=== PATIENT | female | born 1945 | race Caucasian/White ===

== ENCOUNTER → 2016-05-09 | Outpatient (CLI) | payer OTHER, MEDICARE ==
[~2016-05-09] MED LIST: ASPI-587 PO; HYDR1TAB8 OP
--- OUTSIDE RECORDS SUMMARY | 2016-05-09 09:51 | XMS REPORT | Continuity of Care Document ---
Author Author [facility] Organization [facility] Address Unknown Phone Unavailable Care Team Providers Care Ice Hockey Coach Name Role Phone AL ARIZA MD PCP Insurance Providers Payer Name Policy Number Subscriber Name Relationship [employer] [id number] Kevin Najera 18 Self / Same As Patient Enter Insurance Name [id number] Kevin Najera 18 Self / Same As Patient Problems Medical Problems Problem Onset Date Status Closed fracture of left distal radius Unknown Active Medications Medication Dose Route Sig Days/Qty Instructions Order Date Discontinued Date Status Aspirin 81 Mg PO DAILY 08/16/14 Active Hydrocodone Bitartrate/Ibuprofen 1-2 Each OP Q4-6HR PRN PAIN 20 Qty FOR PAIN 08/16/14 Active Social History Social History Problem Response Recorded Date/Time Recreational Drug Use No 08/16/2014 10:10am Recent Foreign Travel No 08/16/2014 9:30am Recent Infectious Disease Exposure No 08/16/2014 9:30am Hospitalization with Isolation Denies 08/16/2014 9:30am Hospital Discharge Instructions No hospital discharge instructions. Plan of Care No plan of care. Functional Status No functional status results. Allergies, Adverse Reactions, Alerts Allergen Type Severity Reaction Status Last Updated No Known Drug Allergies Active 08/16/14 Immunizations No immunization records. Vital Signs Acute Vital Signs Vital Response Date/Time Temperature (Fahrenheit) 96.9 degrees F (97.6 - 99.5) Temperature (Calculated Celsius) 36.83075 degrees C (36.4 - 37.5) Pulse Rate (adult) 76 bpm (60 - 90) Respiratory Rate 20 bpm (12 - 24) O2 Sat by Pulse Oximetry 97 % (88 - 100) Blood Pressure 174/112 mm Hg Pain Pain Intensity 5 Height (Feet) 5 feet Height (Inches) 6 inches Height (Calculated Centimeters) 167.908873 cm Weight (Pounds) 160 pounds Weight (Calculated Kilograms) 72.131182 kilograms Calculated BMI 25.82 Results No known relevant diagnostic tests, laboratory data and/or discharge summary. Procedures No known history of procedures. Encounters Encounter Location Date/Time Departed Emergency Room [facility] 08/16/14 9:31am Recent Diagnosis
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
== END ==
LOC: RAD 09:42
PROVIDERS: ATTEND Family Medicine
DX: S12.9XXA Fracture of neck, unspecified, initial encounter (principal); V99.XXXA Unspecified transport accident, initial encounter; Y99.8 Other external cause status
CPT/HCPCS: 71120; 72040; 72072

== ENCOUNTER 2017-05-07 14:47 | Inpatient (IN) | payer MEDICARE, OTHER ==
[2017-05-07] VITALS (14 sets, daily range): BP systolic 96–148; BP diastolic 66–95
[~2017-05-07] VITALS: Ht 162.6 cm; Wt 67.3 kg
[2017-05-07] MEDS ORDERED: LIDOCAINE 1% INJ 50 ML (XYLOCAINE) VIAL ONE (15:00)
[2017-05-07] MEDS ORDERED: fentaNYL INJECTION 100 MCG/2 ML AMP ONE (15:01)
[2017-05-07] MEDS ORDERED: HEParin (CATH LAB) 2,000 ML IV ONE (15:01)
[2017-05-07] MEDS ORDERED: MIDAZOLAM 5 MG/5 ML (VERSED) VIAL ONE (15:01)
[2017-05-07] MEDS ORDERED: NS IV 1000 ML 1,000 ML ONE (15:01)
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
[2017-05-07] MEDS ORDERED: CLOPIDOGREL 300 MG (PLAVIX) TABLET PO ONE ×2 (15:08→15:15)
[2017-05-07] MEDS ORDERED: ASPIRIN 81 MG CHEW (CHILDREN'S ASA) ONE (15:08)
--- NOTE | 2017-05-07 15:13 | Cardiac Procedure Note-CS/ASA ---
Pre-Procedure Note Pre-Op Procedure Note H&P Reviewed The H&P was reviewed, patient examined and no changes noted. Date H&P Reviewed: May 07, 2017 Time H&P Reviewed: 15:13 Conscious Sedation Pre-Proced Time Reviewed: 15:13 ASA Class: 3 Airway Mallampati Classification: ([place] appropriate class) I. II. III, IV Lungs Heart ASA score ASA 1: a normal healthy patient ASA 2: a patient with a mild systemic disease (mid diabetes, controlled hypertension, obesity x ASA 3: a patient with a severe systemic disease that limits activity (angina , COPD, prior Myocardial infarction) ASA 4: a patient with an incapacitating disease that is a constant threat to life (CHF, renal failure) ASA 5: a moribund patient not expected to survive 24 hrs. (ruptured aneurysm) ASA 6: a declared brain patient whose organs are being harvested. For emergent operations, add the letter E after the classification Grade 3 Sedation Plan: Analgesia, Amnesia, Plan communicated to team members, Discussed options with patient/fam, Discussed risks with patient/fam Note The patient is an appropriate candidate to undergo the planned procedure, sedation, and anesthesia. The patient immediately re-assessed prior to indication. SERGIO PINEDA MD May 07, 2017 15:13
--- NOTE | 2017-05-07 15:14 | ED Chest Pain ---
General Chief Complaint: Chest Pain Stated Complaint: STEMI Source: patient, EMS Exam Limitations: no limitations History of Present Illness Date Seen by Provider: May 07, 2017 Time Seen by Provider: 14:52 Initial Comments Patient presents to ER by private conveyance with a chief complaint that about 2 hours ago she was helping a borwn hanging Schoeling in her son's office in [place], [place] and she began to feel like she was hungry, tired and a squeezing pressure across her chest like her brassiere was too tight. She has no history of coronary artery disease or stroke. She does not have hypertension , history of smoking, diabetes, hypothyroidism. She drinks a glass of red wine about every day. She is not having any radiation to her arms or neck or jaw. She has no nausea, chills, sweats. She has not had a cough or shortness of breath. She says she passed out then and was out for a few seconds before one of the family members found her and alerted EMS. EMS came and checked her blood sugar which was 125 and checked her vitals which were found to be normal and ran an EKG which they said was okay. The patient states she was discouraged from going to the ER there so she came home the [place] ER. Allergies and Home Medications Allergies Coded Allergies: No Known Drug Allergies (Unverified , 08/16/14) Home Medications Aspirin 81 Mg Tablet.dr, 81 MG PO DAILY, (Reported) Hydrocodone Bit/Ibuprofen 1 Each Tablet, 1-2 EACH OP Q4-6HR PRN for PAIN, #20 FOR PAIN Prescribed by: LLOYD CARPENTER on 08/16/14 1029 Review of Systems Constitutional: No chills, No diaphoresis, No malaise EENTM: No Blurred Vision, No Double Vision Respiratory: Denies Cough, Denies Shortness of Air Cardiovascular: See HPI, Chest Pain, Denies Edema, Denies Lightheadedness, Denies Palpitations, Syncope Gastrointestinal: Denies Abdomen Distended, Denies Abdominal Pain Genitourinary: Denies Burning, Denies Discharge Musculoskeletal: No back pain, No joint pain Skin: No pruritus, No rash Psychiatric/Neurological: Denies Headache, Denies Numbness, Denies Paresthesia Past Yfyenhr-Skjmik-Hctokx Hx Patient Social History Alcohol Use: Regular Use Alcohol Beverage of Choice: Wine Recreational Drug Use: No Smoking Status: Never a Smoker Physical Exam Vital Signs Capillary Refill : General Appearance: No Apparent Distress, WD/WN HEENT: PERRL/EOMI, Pharynx Normal Neck: Full Range of Motion, Non Tender, Supple Respiratory: Chest Non Tender, Lungs Clear, Normal Breath Sounds Cardiovascular: Regular Rate, Rhythm, No Edema, Normal Peripheral Pulses Gastrointestinal: Non Tender, Soft Neurologic/Psychiatric: Alert, Oriented x3 Skin: Normal Color, Warm/Dry Progress/Results/Core Measures ECG Initial ECG Impression Date: May 07, 2017 Initial ECG Impression Time: 14:54 Initial ECG Rate: 70 Initial ECG Rhythm: Normal Sinus Initial ECG Intervals: IN (200) Initial ECG Impression: Acute IA Initial ECG Comparisson: No Previous ECG Available Comment Inferior STEMI: ST elevation in leads 2, 3 and aVF with reciprocal depression in aVL and little bit in the anterior leads. Departure Communication (Admissions) Time/Spoke to Admitting Phy: 14:[address] Helm, sales & service associate on-call described the EKG and he asked us to alert the catheter lab and he is coming to see the patient immediately. He has asked for Plavix 600 mg as well as aspirin 325 mg. Impression Impression: Primary Impression: ST elevation (STEMI) myocardial infarction Qualified Codes: I21.19 - ST elevation (STEMI) myocardial infarction involving other coronary artery of inferior wall Disposition: ADMITTED INPATIENT Condition: Critical Admissions Decision to Admit Reason: Admit from ER (General) Decision to Admit/Date: May 07, 2017 Time/Decision to Admit Time: 15:16 Departure-Patient Inst. Referrals: AL ARIZA MD (PCP/Family) Primary Care Physician Copy Copies To 1: AL ARIZA MD Copies To 2: SERGIO HELM MD, TITUS J May 07, 2017 15:14
[2017-05-07] MEDS ORDERED: ASPIRIN 81 MG CHEW (CHILDREN'S ASA) PO ONE (15:15)
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
[2017-05-07] MEDS ORDERED: NITROGLYCERIN DRIP 25 MG/D5W 250 ML IV ONE (15:18)
[2017-05-07] MEDS ORDERED: HEParin 1000 UNIT/ML (10ML VIAL) FOR BOLUS ONE (15:18)
[2017-05-07 15:20] LABS: BASOPHILS % (AUTO) 1 % (0-10); EOSINOPHILS # (AUTO) 0.1 10^3/uL (0.0-0.3); EOSINOPHILS % (AUTO) 1 % (0-10); HEMATOCRIT 40 % (35-52); HEMOGLOBIN 13.7 G/DL (11.5-16.0); LYMPHOCYTES # (AUTO) 0.9 X 10^3 (1.0-4.0); LYMPHOCYTES % (AUTO) 13 % (12-44); MEAN CORPUSCULAR HEMOGLOBIN 33 PG (25-34); MEAN CORPUSCULAR HGB CONC 35 G/DL (32-36); MEAN CORPUSCULAR VOLUME 95 FL (80-99); MEAN PLATELET VOLUME 9.7 FL (7.4-10.4); MONOCYTES # (AUTO) 0.7 X 10^3 (0.0-1.0); MONOCYTES % (AUTO) 11 % (0-12); NEUTROPHILS # (AUTO) 5.2 X 10^3 (1.8-7.8); NEUTROPHILS % (AUTO) 75 % (42-75); PLATELET COUNT 214 10^3/uL (130-400); RED BLOOD COUNT 4.19 10^6/uL (4.35-5.85)
[2017-05-07] MEDS ORDERED: EPTIFIBATIDE BOLUS 20 ML IV ONE (15:23)
[2017-05-07] MEDS ORDERED: EPTIFIBATIDE DRIP 100 ML IV ONE (15:23)
[2017-05-07 15:24] LABS: INR 1.1 (0.8-1.4); PROTHROMBIN TIME PATIENT 13.8 SEC (12.2-14.7)
[2017-05-07] MEDS ORDERED: ATROPINE INJECTION 1 MG/10 ML SYR (ABBOTT) ONE (15:28)
[2017-05-07 15:32] LABS: ALANINE AMINOTRANSFERASE 16 U/L (0-55); ALBUMIN 4.2 GM/DL (3.2-4.5); ALKALINE PHOSPHATASE 80 U/L (40-136); BILIRUBIN,TOTAL 0.4 MG/DL (0.1-1.0); BUN/CREATININE RATIO 12; CALCIUM 9.6 MG/DL (8.5-10.1); CARBON DIOXIDE 25 MMOL/L (21-32); CHLORIDE 102 MMOL/L (98-107); CREATININE SERUM 0.76 MG/DL (0.60-1.30); GFR ESTIMATED > 60; GLUCOSE 150 MG/DL (70-105); MAGNESIUM 1.8 MG/DL (1.8-2.4); POTASSIUM 3.2 MMOL/L (3.6-5.0); SODIUM 138 MMOL/L (135-145); TOTAL PROTEIN 7.4 GM/DL (6.4-8.2)
[2017-05-07 15:39] LABS: MYOGLOBIN SERUM 46.9 NG/ML (10.0-92.0)
[2017-05-07] MEDS ORDERED: PATIENT MAY USE OWN MEDS, ALL PO SCH (16:15)
--- NOTE | 2017-05-07 16:26 | Cardiac Cath Report ---
Cardiac Cath Report Physician (s)/Cemetery Worker (s) Physician SERGIO PINEDA MD Pre-Procedure Diagnosis Pre-Procedure Diagnosis: Acute ST elevation Myocardial infarction Post-Procedure Note Procedure Start Date: May 07, 2017 Name of Procedure: Left heart catheterization Left ventriculogram Emergency angioplasty and stenting to the right coronary artery Emergency angioplasty and stenting to the LAD Door to balloon time 41 minutes Findings/Procedure Note PROCEDURE NOTE: After explaining the procedure to the patient, all pros and cons were explained, all questions were answered. The patient signed the consent and then she was placed on the cardiac catheterization laboratory. The patient was placed on the cardiac catheterization laboratory. Groin was prepped SL fashion local anesthesia was used. Sheath placed in the artery. Cam right and left catheter were used to access the coronary system. Patient had acute ST elevation microinfarction the inferior wall, had total occlusion of the right coronary artery, I proceeded with Cam right guide, patient received total of 8000 units of heparin, 325 mg of aspirin, 600 mg of Plavix. BMW wire was advanced to the proximal portion, due to the tortuosity in the right coronary artery and was unable to advance the wire, I advanced a 2.020 mm balloon to support the wire and was able to advance the wire distally , balloon was inflated initially, door to balloon time was 41 minutes, flow was established but patient has severe spasm in the right coronary artery I pulled the guide slightly backward then I proceeded with advancement of Alpine stent 3.023 mm expanded to 3.2 mm. It was slightly under deployed, patient has severe spasm in the right coronary artery I had to adjust the guide, while adjusting the guide a guide pulled out of the right coronary artery and lost the wire position, I was unable to advance the wire, try to use a balloon support without success due to the tortuosity and spasm, due to the existence of a fresh stent I did not want to continue manipulating around the stent. I pulled the wire out and performed angiogram and I had good results. I advanced Cam left guide to the left carotid system, advanced a new BMW wire through the LAD that has 95 percent stenosis. Then advanced Amerge balloon 3.020 mm then after predilatation I advanced Alpine stent 3.023 mm expanded to 3.2 mm with excellent results. Patient had mild to moderate stenosis at the ostium of the diagonal branch that continued to be present after the procedure. The lesion appeared to be stable. Pigtail was used to access the left ventricular cavity. Left ventriculogram was done At the end of the procedure the sheath was removed. Closure device was used FINDINGS: Hemodynamics LV 140/12, end-diastolic pressure of 12 Aorta 154/86 mean of 115 No significant gradient across the aortic valve ANATOMY: Left Main is free of obstructive disease Left Anterior Descending has severe stenosis at the midportion immediately after the origin of the diagonal artery that has 50 percent ostial stenosis, successful complex intervention with balloon angioplasty then stenting using Alpine 3.023 mm expanded to 3.2 mm with excellent results. The ostial diagonal stenosis did not get affected Left Circumflex is moderate in size with no significant obstructive disease Right Coronory Artery his dominant artery, severely tortuous, totally occluded at the midportion with heavy clot burden, successful balloon angioplasty then stent deployment using Alpine 3.023 mm expanded to 3.2 mm with excellent results, the stent appeared to be slightly undersized at the midportion, I attempted to reposition the wire after losing the guide and the wire position without success in advancing the wire or advancing the balloon. LV Gram was done in the right anterior oblique position left ventricular is normal in size, mild hypokinesia of the inferior wall with estimated ejection fraction 50 percent CONCLUSION: 1. Acute ST elevation myocardial infarction with total occlusion of the right coronary artery successful emergency balloon angioplasty and stenting to the right coronary artery with door to balloon time 41 minutes 2. Total occlusion of the right coronary artery, tortuous artery, complex intervention with deployment of Alpine 3.023 mm stent expanded to 3.2 mm with good results. Slightly undersized in the mid section. I will continue monitoring closely. 3. Subtotal occlusion of the mid LAD, successful balloon angioplasty and stenting using Alpine stent 3.023 mm expanded to 3.2 mm with good results 4. Mild disease in the circumflex artery 5. Normal left ventricle size with mild hypokinesia at the inferior wall with preserved systolic function estimated ejection fraction 50 percent 6. Severe hypertension. DISCUSSION AND RECOMMENDATION: I will maximize medical therapy, patient was started on aspirin, Plavix, Lipitor 80 mg, fish oil and metoprolol. Continue to monitor Anesthesia Type: Conscious Sedation Estimated blood loss (mL): 25 ml Contrast Amount: 180 ml Total Radiation Dose: 386 mGy Post-Procedure Diagnosis Post-operative diagnosis: Acute ST elevation inferior wall myocardial infarction Coronary artery disease Hypertension Hyperlipidemia SERGIO PINEDA MD May 07, 2017 16:26
[2017-05-07] MEDS: OMEGA 3 (FISH OIL) 1000 MG CAP PO SCH (18:00)
[2017-05-07] MEDS ORDERED: ONDANSETRON 4 MG/2 ML (SDV) Z0FRAN IVP NR ×2 (18:30→19:30)
[2017-05-07] MEDS ORDERED: MEPERIDINE (DEMEROL) INJ 50 MG/ML IVP NR (18:30)
[2017-05-07] MEDS ORDERED: oxyCODONE/APAP 5/325MG (PERCOCET 5) TABLET PO NR (18:45)
[2017-05-07] MEDS ORDERED: CALCIUM CARBONATE 500 MG (TUMS) TAB.CHEW PO NR (18:45)
[2017-05-07] MEDS: NS IV 1000 ML 1,000 ML IV SCH (18:49)
[2017-05-07 19:46] LABS: BASOPHILS % (AUTO) 1 % (0-10); EOSINOPHILS % (AUTO) 0 % (0-10); HEMATOCRIT 35 % (35-52); HEMOGLOBIN 12.3 G/DL (11.5-16.0); LYMPHOCYTES # (AUTO) 0.7 X 10^3 (1.0-4.0); LYMPHOCYTES % (AUTO) 10 % (12-44); MEAN CORPUSCULAR HEMOGLOBIN 33 PG (25-34); MEAN CORPUSCULAR HGB CONC 35 G/DL (32-36); MEAN CORPUSCULAR VOLUME 95 FL (80-99); MEAN PLATELET VOLUME 9.8 FL (7.4-10.4); MONOCYTES # (AUTO) 0.5 X 10^3 (0.0-1.0); MONOCYTES % (AUTO) 8 % (0-12); NEUTROPHILS # (AUTO) 5.4 X 10^3 (1.8-7.8); NEUTROPHILS % (AUTO) 81 % (42-75); PLATELET COUNT 203 10^3/uL (130-400); RED BLOOD COUNT 3.72 10^6/uL (4.35-5.85); WHITE BLOOD COUNT 6.6 10^3/uL (4.3-11.0)
[2017-05-07] MEDS ORDERED: INFLUENZA TRIvalent 2017-2018 0.5 ML/45 MCG SYR IM ONE (20:00)
[2017-05-07] MEDS ORDERED: NITROGLYCERIN 0.4 MG SL TABS BTL 25'S SL PRN (21:30)
[2017-05-07] MEDS ORDERED: NS IV 500 ML 500 ML ONE (21:52)
[2017-05-07] MEDS ORDERED: NS 1000 ML IV BAG IV ONE (22:00)
[2017-05-07] MEDS: ATORVASTATIN 80 MG (LIPITOR) TABLET PO SCH (22:16)
[2017-05-08] VITALS (14 sets, daily range): BP systolic 105–145; BP diastolic 58–105
[2017-05-08] MEDS: NS IV 1000 ML 1,000 ML IV SCH ×3 (02:15→22:10)
[2017-05-08 04:53] LABS: HEMOGLOBIN 11.1 G/DL (11.5-16.0); RED BLOOD COUNT 3.38 10^6/uL (4.35-5.85); WHITE BLOOD COUNT 6.6 10^3/uL (4.3-11.0)
[2017-05-08 05:13] LABS: BUN/CREATININE RATIO 12; CALCIUM 8.7 MG/DL (8.5-10.1); CARBON DIOXIDE 23 MMOL/L (21-32); CHLORIDE 104 MMOL/L (98-107); GFR ESTIMATED > 60; GLUCOSE 124 MG/DL (70-105); POTASSIUM 4.1 MMOL/L (3.6-5.0); SODIUM 136 MMOL/L (135-145)
[2017-05-08 05:15] LABS: CHOLESTEROL 185 MG/DL (< 200); HDL CHOLESTEROL 48 MG/DL (40-60); TRIGLYCERIDES 101 MG/DL (<150); VLDL CHOLESTEROL 20 MG/DL (5-40)
[2017-05-08] MEDS: CLOPIDOGREL 75 MG (PLAVIX) TABLET PO SCH (08:10)
[2017-05-08] MEDS: ASPIRIN E.C. 81 MG (ECOTRIN) TAB PO SCH (08:11)
[2017-05-08] MEDS: OMEGA 3 (FISH OIL) 1000 MG CAP PO SCH ×2 (08:12→17:08)
--- NOTE | 2017-05-08 09:03 | Cardiology Progress Note ---
Subjective Date Seen by Provider: May 08, 2017 Time Seen by Provider: 08:58 Subjective/Events-last exam Patient is in bed, had a difficult night, started with small hematoma in groin, improved with manual pressure and femstop, had multiple vagal episodes with chest pain, hypotension, nausea and vomiting, improved with IVF and decreasing pressure on the groin, now feeling well, sitting in a chair and had breakfast Review of Systems General: No Chills, No Night Sweats, No Fatigue, No Malaise, No Appetite, No Other HEENT: No Head Aches, No Visual Changes, No Eye Pain, No Ear Pain, No Dysphasia , No Sinus Congestion, No Post Nasal Drip, No Sore Throat, No Other Pulmonary: No Dyspnea, No Cough, No Pleuritic Chest Pain, No Other Cardiovascular: No: Chest Pain, Palpitations, Orthopnea, Paroxysmal Noc. Dyspnea, Edema, Lt Headedness, Other Objective-Cardiology Exam Last Set of Vital Signs Vital Signs 05/08/17 08:00 Temp 97.6 Pulse 79 Resp 24 B/P (MAP) 145/97 (113) Pulse Ox 97 O2 Delivery Room Air Capillary Refill : Less Than 3 Seconds I&O Intake and Output 05/08/17 00:00 Intake Total 635 ml Output Total 400 ml Balance 235 ml Intake Oral 150 ml IV Total 485 ml Output Urine Total 400 ml Daily Weight Change No General: Alert, Oriented X3, Cooperative, No Acute Distress HEENT: Atraumatic, PERRLA Neck: Supple, No JVD Lungs: Clear to Auscultation, Normal Air Movement Heart: Regular Rate, Normal S1, Normal S2, No Murmurs Abdomen: Normal Bowel Sounds, Soft, No Tenderness, No Hepatosplenomegaly, No Masses Extremities: No Clubbing, No Cyanosis, No Edema, Normal Pulses, No Tenderness/ Swelling Skin: No Rashes, No Breakdown, No Significant Lesion Neuro: Normal Gait, Normal Speech, Strength at 5/5 X4 Ext, Normal Tone, Sensation Intact Psych/Mental Status: Mental Status NL, Mood NL Results Lab Laboratory Tests 05/07/17 15:02 05/07/17 19:37 05/08/17 04:40 A/P-Cardiology Admission Diagnosis Acute ST elevation or cardiac impression Coronary artery disease Hypertension Hyperlipidemia Assessment/Plan Acute ST elevation Myocardial infarction, Underwent emergency cardiac catheterization which showed total occlusion of the right coronary artery with subtotal occlusion of the LAD, successful angioplasty and stenting to the right coronary artery using Alpine 3.0 x 23 with excellent results, patient has severe spasm in the right coronary artery, I was unable to post-dilate the stent , stent was expanded to 3.2 mm in diameter, LAD had balloon angioplasty then stenting using Alpine 3.023 mm expanded to 3.2 mm with excellent results, feeling better now Coronary artery disease status post complex intervention to the Right coronary artery and LAD with excellent results. Door to balloon time was 41 minutes Normal left ventricular size with mild hypokinesia of the inferior wall estimate ejection fraction 50 percent. Hypertension started on Toprol XL 25 mg daily Questionable hyperlipidemia started on Lipitor 80 mg daily and fish oil Vagal episode while having Femstop, better now I will monitor another 24 hours Clinical Quality Measures AMI/AHF: ASA po Prior to arrival: Yes (81) DVT/VTE Risk/Contraindication: Risk Factor Score Per Nursin RFS Level Per Nursing on Admit: 2=Moderate SERGIO PINEDA MD May 08, 2017 09:02
[2017-05-08] MEDS ORDERED: ASPI-983 PO (10:48)
[2017-05-08] MEDS: ATORVASTATIN 80 MG (LIPITOR) TABLET PO SCH (21:06)
[2017-05-09] VITALS: BP 130/86
[2017-05-09 04:00] VITALS: BP 131/72
[2017-05-09 05:49] LABS: HEMOGLOBIN 10.9 G/DL (11.5-16.0); MEAN PLATELET VOLUME 10.1 FL (7.4-10.4); RED BLOOD COUNT 3.33 10^6/uL (4.35-5.85); RED CELL DISTRIBUTION WIDTH 13.1 % (10.0-14.5); WHITE BLOOD COUNT 5.7 10^3/uL (4.3-11.0)
[2017-05-09 06:25] LABS: BUN/CREATININE RATIO 16; CALCIUM 8.6 MG/DL (8.5-10.1); CARBON DIOXIDE 26 MMOL/L (21-32); CHLORIDE 103 MMOL/L (98-107); CREATININE SERUM 0.61 MG/DL (0.60-1.30); GFR ESTIMATED > 60; GLUCOSE 96 MG/DL (70-105); MAGNESIUM 1.8 MG/DL (1.8-2.4); POTASSIUM 3.8 MMOL/L (3.6-5.0); SODIUM 138 MMOL/L (135-145)
[2017-05-09 08:00] VITALS: BP 140/76
[2017-05-09] MEDS: OMEGA 3 (FISH OIL) 1000 MG CAP PO SCH (08:12)
--- NOTE | 2017-05-09 08:45 | Cardiology Discharge Summary ---
Diagnosis/Chief Complaint Date of Admission May 07, 2017 Date of Discharge May 09, [address] elevation myocardial infarction Coronary artery disease Hypertension Hyperlipidemia Discharge Diagnosis Acute ST elevation myocardial infarction Coronary artery disease Hypertension Hyperlipidemia Chief Complaint/HPI Chief Complaint/HPI 48 years or lady with no significant history other than history of trauma in the past with back injury. Admitted with acute chest pain, had ST elevation inferior wall myocardial infarction, brought for emergency cardiac catheterization, successful intervention to arteries as described below. This morning she is feeling well. Denied any chest pain or shortness of breath. Discharge Summary Hospital Course Hospital Course Acute ST elevation Myocardial infarction, Underwent emergency cardiac catheterization which showed total occlusion of the right coronary artery with subtotal occlusion of the LAD, successful angioplasty and stenting to the right coronary artery using Alpine 3.0 x 23 with excellent results, patient has severe spasm in the right coronary artery, I was unable to post-dilate the stent , stent was expanded to 3.2 mm in diameter, LAD had balloon angioplasty then stenting using Alpine 3.023 mm expanded to 3.2 mm with excellent results, feeling well. Planning to discharge home today. Coronary artery disease status post complex intervention to the Right coronary artery and LAD with excellent results. Door to balloon time was 41 minutes Normal left ventricular size with mild hypokinesia of the inferior wall estimate ejection fraction 50 percent. Hypertension started on Toprol XL 25 mg dailynext Hyperlipidemia, started on Lipitor 80 mg and fish oil daily Vagal episode while having Femstop, improved. Labs Laboratory Tests 05/07/17 15:02: Red Blood Count 4.19L, Lymphocytes # (Auto) 0.9L, Potassium Level 3.2L, Glucose Level 150H 05/07/17 19:37: Red Blood Count 3.72L, Lymphocytes # (Auto) 0.7L, Neutrophils (%) (Auto) 81H, Lymphocytes (%) (Auto) 10L 05/08/17 04:40: Red Blood Count 3.38L, Glucose Level 124H, Hemoglobin 11.1L, Hematocrit 33L, Troponin I 3.92*H 05/09/17 05:20: Red Blood Count 3.33L, Hemoglobin 10.9L, Hematocrit 32L Procedures None. Discharge Physical Examination Allergies: Coded Allergies: No Known Drug Allergies (Unverified , 08/16/14) Vitals & I&Os Vital Signs Date Time Temp Pulse Resp B/P (MAP) Pulse Ox O2 Delivery O2 Flow Rate FiO2 05/09/17 07:00 62 05/09/17 06:52 Nasal Cannula 2.00 05/09/17 04:00 97.5 18 131/72 (91) 95 General Appearance: Alert, Oriented X3, Cooperative, No Acute Distress HEENT: Atraumatic, PERRLA Respiratory: Clear to Auscultation, Normal Air Movement Cardiovascular: Regular Rate, Normal S1, Normal S2, No Murmurs Abdominal: Normal Bowel Sounds, Soft, No Tenderness, No Hepatosplenomegaly, No Masses Extremities: No Clubbing, No Cyanosis, No Edema, Normal Pulses, No Tenderness/ Swelling Skin: No Rashes, No Breakdown, No Significant Lesion Neuro: Normal Gait, Normal Speech, Strength at 5/5 X4 Ext, Normal Tone, Sensation Intact, Cranial Nerves 3-12 NL, Reflexes 2+ Psych/Mental Status: Mental Status NL, Mood NL Discharge Home Medications Reviewed and agree with Discharge Medication list on patient's Discharge Instruction sheet Instructions to Patient/Family Please see electronic discharge instructions given to patient. Clinical Quality Measures AMI/AHF: ASA po Prior to arrival: Yes (81) DVT/VTE Risk/Contraindication: Risk Factor Score Per Nursin RFS Level Per Nursing on Admit: 2=Moderate SERGIO PINEDA MD May 09, 2017 08:45
[2017-05-09] MEDS ORDERED: ATOR80TA76 PO (08:46)
[2017-05-09] MEDS: ASPIRIN E.C. 81 MG (ECOTRIN) TAB PO SCH (08:46)
[2017-05-09] MEDS: CLOPIDOGREL 75 MG (PLAVIX) TABLET PO SCH (08:46)
[2017-05-09] MEDS ORDERED: CLOP75TA28 PO (08:46)
[2017-05-09] MEDS ORDERED: OMG1KC PO (08:46)
[2017-05-09] MEDS ORDERED: METO-387 PO (08:46)
--- NOTE | 2017-05-09 08:47 | Discharge Inst-Post CATH ---
Discharge Inst-CATH Post Cardiac Cath D/C Inst Follow Up/Plan Appointment with Dr. Helm's office next week CARDIAC CATH DISCHARGE INSTRUCTIONS *Hold Metformin for 48 hours post heart cath. ACTIVITY * Go Home directly and rest. * Limit activity of the leg (or wrist if it was used) for 7 days including aerobics, swimming, jogging, bicycling, etc. * Restrict stair-climbing for 7 days if possible, if not, climb up with your non -cath leg, then bring together on the same step. * Avoid lifting, pushing, pulling or excessive movement of the affected extremity for 7 days. * Customary sexual activity may be resumed after 2 days-use caution not to use a position that strains or causes pain to the affected extremity. * No driving for 24 hours. * NO SMOKING. * Avoid straining for bowel movements for 7 days. * Gentle walking on level ground is allowed. * Returning to work will depend on the type of procedure and the results. Your doctor will discuss this with you. CALL YOUR DOCTOR FOR ANY OF THE FOLLOWING: *If bleeding from the puncture site occurs- Apply gentle pressure to site with clean cloth and call your doctor or EMS. * If a knot or lump forms under the skin, increases in size, or causes pain. * If bruising appears to be worsening or moving further down your leg instead of disappearing. * Temperature above 101 F. CARE OF YOUR GROIN INCISION; * Bruising or purple discoloration of the skin near the puncture site is common. * You may shower only, no bathtub bathing for 5 days. Be careful to avoid slipping as your leg may feel stiff. * If a closure device was used on your femoral artery, please see the attached guide regarding care of the device and your leg. * REMOVE the dressing from your groin the next day after your procedure in the shower. CARE OF YOUR WRIST INCISION; * Bruising or purple discoloration of the skin near the puncture site is common. * You may shower. * DO NOT submerge wrist. * Remove dressing in 24 hours. SERGIO HELM MD May 09, 2017 08:47
[2017-05-09] MEDS: NS IV 1000 ML 1,000 ML IV SCH (10:06)
[2017-05-09 10:25] VITALS: BP 140/76
--- OUTSIDE RECORDS SUMMARY | 2017-05-09 15:24 | XMS REPORT | Continuity of Care Document ---
Author Author [facility] Organization [facility] Address Unknown Phone Unavailable Allergies Active Description Code Type Severity Reaction Onset Reported/Identified Relationship to Patient Clinical Status Yes No Known Drug Allergies [id number] Drug Allergy Unknown N/A 08/16/2014 Medications There is no data. Problems Date Dx Coded Attending Type Code Diagnosis Diagnosed By 08/16/2014 LLOYD CARPENTER DO, Ot 813.42 FX DISTAL RADIUS NEC-CL 08/16/2014 LLOYD CARPENTER DO, Ot 959.3 ELB/FOREARM/WRST INJ NOS 08/16/2014 LLOYD [...] STATUS Procedures There is no data. Results Test Result Range Complete blood count (CBC) with automated white blood cell (WBC) differential - 05/07/17 15:02 Blood leukocytes automated count (number/volume) 7.0 10*3/uL 4.3-11.0 Blood erythrocytes automated count (number/volume) 4.19 10*6/uL 4.35-5.85 Venous blood hemoglobin measurement (mass/volume) 13.7 g/dL 11.5-16.0 Blood hematocrit (volume fraction) 40 % 35-52 Automated erythrocyte mean corpuscular volume 95 [foz_us] 80-99 Automated erythrocyte mean corpuscular hemoglobin (mass per erythrocyte) 33 pg 25-34 Automated erythrocyte mean corpuscular hemoglobin concentration measurement ( mass/volume) 35 g/dL 32-36 Automated erythrocyte distribution width ratio 13.0 % 10.0-14.5 Automated blood platelet count (count/volume) 214 10*3/uL 130-400 Automated blood platelet mean volume measurement 9.7 [foz_us] 7.4-10.4 Automated blood neutrophils/100 leukocytes 75 % 42-75 Automated blood lymphocytes/100 leukocytes 13 % 12-44 Blood monocytes/100 leukocytes 11 % 0-12 Automated blood eosinophils/100 leukocytes 1 % 0-10 Automated blood basophils/100 leukocytes 1 % 0-10 Blood neutrophils automated count (number/volume) 5.2 10*3 1.8-7.8 Blood lymphocytes automated count (number/volume) 0.9 10*3 1.0-4.0 Blood monocytes automated count (number/volume) 0.7 10*3 0.0-1.0 Automated eosinophil count 0.1 10*3/uL 0.0-0.3 Automated blood basophil count (count/volume) 0.0 10*3/uL 0.0-0.1 PT panel in platelet poor plasma by coagulation assay - 05/07/17 15:02 Prothrombin time (PT) in platelet poor plasma by coagulation assay 13.8 s 12.2-14.7 INR in platelet poor plasma or blood by coagulation assay 1.1 0.8-1.4 Activated partial thromboplastin time (aPTT) in platelet poor plasma bycoagulation assay - 05/07/17 15:02 Activated partial thromboplastin time (aPTT) in platelet poor plasma bycoagulation assay 26 s 24-35 Comprehensive metabolic panel - 05/07/17 15:02 Serum or plasma sodium measurement (moles/volume) 138 mmol/L 135-145 Serum or plasma potassium measurement (moles/volume) 3.2 mmol/L 3.6-5.0 Serum or plasma chloride measurement (moles/volume) 102 mmol/L 98-107 Carbon dioxide 25 mmol/L 21-32 Serum or plasma anion gap determination (moles/volume) 11 mmol/L 5-14 Serum or plasma urea nitrogen measurement (mass/volume) 9 mg/dL 7-18 Serum or plasma creatinine measurement (mass/volume) 0.76 mg/dL 0.60-1.30 Serum or plasma urea nitrogen/creatinine mass ratio 12 NRG Serum or plasma creatinine measurement with calculation of estimated glomerular filtration rate > NRG Serum or plasma glucose measurement (mass/volume) 150 mg/dL 70-105 Serum or plasma calcium measurement (mass/volume) 9.6 mg/dL 8.5-10.1 Serum or plasma total bilirubin measurement (mass/volume) 0.4 mg/dL 0.1-1.0 Serum or plasma alkaline phosphatase measurement (enzymatic activity/volume) 80 U/L 40-136 Serum or plasma aspartate aminotransferase measurement (enzymatic activity/ volume) 20 U/L 5-34 Serum or plasma alanine aminotransferase measurement (enzymatic activity/volume ) 16 U/L 0-55 Serum or plasma protein measurement (mass/volume) 7.4 g/dL 6.4-8.2 Serum or plasma albumin measurement (mass/volume) 4.2 g/dL 3.2-4.5 Magnesium - 05/07/17 15:02 Magnesium 1.8 mg/dL 1.8-2.4 Serum or plasma troponin i.cardiac measurement (mass/volume) - 05/07/17 15:02 Serum or plasma troponin i.cardiac measurement (mass/volume) < ng/ mL <0.30 Myoglobin, serum - 05/07/17 15:02 Myoglobin, serum 46.9 ng/mL 10.0-92.0 Complete blood count (CBC) with automated white blood cell (WBC) differential - 05/07/17 19:37 Blood leukocytes automated count (number/volume) 6.6 10*3/uL 4.3-11.0 Blood erythrocytes automated count (number/volume) 3.72 10*6/uL 4.35-5.85 Venous blood hemoglobin measurement (mass/volume) 12.3 g/dL 11.5-16.0 Blood hematocrit (volume fraction) 35 % 35-52 Automated erythrocyte mean corpuscular volume 95 [foz_us] 80-99 Automated erythrocyte mean corpuscular hemoglobin (mass per erythrocyte) 33 pg 25-34 Automated erythrocyte mean corpuscular hemoglobin concentration measurement ( mass/volume) 35 g/dL 32-36 Automated erythrocyte distribution width ratio 13.0 % 10.0-14.5 Automated blood platelet count (count/volume) 203 10*3/uL 130-400 Automated blood platelet mean volume measurement 9.8 [foz_us] 7.4-10.4 Automated blood neutrophils/100 leukocytes 81 % 42-75 Automated blood lymphocytes/100 leukocytes 10 % 12-44 Blood monocytes/100 leukocytes 8 % 0-12 Automated blood eosinophils/100 leukocytes 0 % 0-10 Automated blood basophils/100 leukocytes 1 % 0-10 Blood neutrophils automated count (number/volume) 5.4 10*3 1.8-7.8 Blood lymphocytes automated count (number/volume) 0.7 10*3 1.0-4.0 Blood monocytes automated count (number/volume) 0.5 10*3 0.0-1.0 Automated eosinophil count 0.0 10*3/uL 0.0-0.3 Automated blood basophil count (count/volume) 0.0 10*3/uL 0.0-0.1 Automated blood complete blood count (hemogram) panel - 05/08/17 04:40 Blood leukocytes automated count (number/volume) 6.6 10*3/uL 4.3-11.0 Blood erythrocytes automated count (number/volume) 3.38 10*6/uL 4.35-5.85 Venous blood hemoglobin measurement (mass/volume) 11.1 g/dL 11.5-16.0 Blood hematocrit (volume fraction) 33 % 35-52 Automated erythrocyte mean corpuscular volume 96 [foz_us] 80-99 Automated erythrocyte mean corpuscular hemoglobin (mass per erythrocyte) 33 pg 25-34 Automated erythrocyte mean corpuscular hemoglobin concentration measurement ( mass/volume) 34 g/dL 32-36 Automated erythrocyte distribution width ratio 13.0 % 10.0-14.5 Automated blood platelet count (count/volume) 194 10*3/uL 130-400 Automated blood platelet mean volume measurement 10.0 [foz_us] 7.4-10.4 Whole blood basic metabolic panel - 05/08/17 04:40 Serum or plasma sodium measurement (moles/volume) 136 mmol/L 135-145 Serum or plasma potassium measurement (moles/volume) 4.1 mmol/L 3.6-5.0 Serum or plasma chloride measurement (moles/volume) 104 mmol/L 98-107 Carbon dioxide 23 mmol/L 21-32 Serum or plasma anion gap determination (moles/volume) 9 mmol/L 5-14 Serum or plasma urea nitrogen measurement (mass/volume) 7 mg/dL 7-18 Serum or plasma creatinine measurement (mass/volume) 0.60 mg/dL 0.60-1.30 Serum or plasma urea nitrogen/creatinine mass ratio 12 NRG Serum or plasma creatinine measurement with calculation of estimated glomerular filtration rate > NRG Serum or plasma glucose measurement (mass/volume) 124 mg/dL 70-105 Serum or plasma calcium measurement (mass/volume) 8.7 mg/dL 8.5-10.1 Lipid 1996 panel - 05/08/17 04:40 Serum or plasma triglyceride measurement (mass/volume) 101 mg/dL <150 Serum or plasma cholesterol measurement (mass/volume) 185 mg/dL < 200 Serum or plasma cholesterol in HDL measurement (mass/volume) 48 mg/ dL 40-60 Cholesterol in LDL [mass/volume] in serum or plasma by direct assay 119 mg/dL 1-129 Serum or plasma cholesterol in VLDL measurement (mass/volume) 20 mg/ dL 5-40 Serum or plasma troponin i.cardiac measurement (mass/volume) - 05/08/17 04:40 Serum or plasma troponin i.cardiac measurement (mass/volume) 3.92 ng /mL <0.30 Automated blood complete blood count (hemogram) panel - 05/09/17 05:20 Blood leukocytes automated count (number/volume) 5.7 10*3/uL 4.3-11.0 Blood erythrocytes automated count (number/volume) 3.33 10*6/uL 4.35-5.85 Venous blood hemoglobin measurement (mass/volume) 10.9 g/dL 11.5-16.0 Blood hematocrit (volume fraction) 32 % 35-52 Automated erythrocyte mean corpuscular volume 97 [foz_us] 80-99 Automated erythrocyte mean corpuscular hemoglobin (mass per erythrocyte) 33 pg 25-34 Automated erythrocyte mean corpuscular hemoglobin concentration measurement ( mass/volume) 34 g/dL 32-36 Automated erythrocyte distribution width ratio 13.1 % 10.0-14.5 Automated blood platelet count (count/volume) 167 10*3/uL 130-400 Automated blood platelet mean volume measurement 10.1 [foz_us] 7.4-10.4 Whole blood basic metabolic panel - 05/09/17 05:20 Serum or plasma sodium measurement (moles/volume) 138 mmol/L 135-145 Serum or plasma potassium measurement (moles/volume) 3.8 mmol/L 3.6-5.0 Serum or plasma chloride measurement (moles/volume) 103 mmol/L 98-107 Carbon dioxide 26 mmol/L 21-32 Serum or plasma anion gap determination (moles/volume) 9 mmol/L 5-14 Serum or plasma urea nitrogen measurement (mass/volume) 10 mg/dL 7-18 Serum or plasma creatinine measurement (mass/volume) 0.61 mg/dL 0.60-1.30 Serum or plasma urea nitrogen/creatinine mass ratio 16 NRG Serum or plasma creatinine measurement with calculation of estimated glomerular filtration rate > NRG Serum or plasma glucose measurement (mass/volume) 96 mg/dL 70-105 Serum or plasma calcium measurement (mass/volume) 8.6 mg/dL 8.5-10.1 Magnesium - 05/09/17 05:20 Magnesium 1.8 mg/dL 1.8-2.4 Encounters ACCT No. Visit Date/Time Discharge Status Pt. Type Provider Facility Loc./Unit Complaint [id number] 05/09/2016 09:42:00 05/09/2016 23:59:59 CLS Outpatient AL ARIZA MD [facility] RAD FRACTURE OF CERVICAL SPINE WO SPINAL CORD LESION [id number] 08/16/2014 09:31:00 08/16/2014 10:30:00 DIS Emergency LLOYD CARPENTER DO [facility] ER FALL/LEFT WRIST INJURY [id number] 05/07/2017 15:24:00 Document Registration
== END 2017-05-09 10:25 | disposition home or self-care (01) | DRG 247 ==
LOC: EDUNIT# 14:47 → ER 14:49 → ICU 15:01 → CATH 15:01 → ICU 16:45 → CATH 16:45 → ICU 05-09 10:25
PROVIDERS: ADMIT Internal Medicine Cardiovascular Disease; ATTEND Internal Medicine Cardiovascular Disease
PROC: 027135Z Dilation of Coronary Artery, Two Arteries with Two Drug-eluting Intraluminal Devices, Percutaneous Approach (ICD-10-PCS; principal; 2017-05-07)
PROC: 4A023N7 Measurement of Cardiac Sampling and Pressure, Left Heart, Percutaneous Approach (ICD-10-PCS; 2017-05-07)
PROC: B2151ZZ Fluoroscopy of Left Heart using Low Osmolar Contrast (ICD-10-PCS; 2017-05-07)
PROC: B2111ZZ Fluoroscopy of Multiple Coronary Arteries using Low Osmolar Contrast (ICD-10-PCS; 2017-05-07)
DX: I21.19 ST elevation (STEMI) myocardial infarction involving other coronary artery of inferior wall (principal); I25.10 Atherosclerotic heart disease of native coronary artery without angina pectoris; L76.32 Postprocedural hematoma of skin and subcutaneous tissue following other procedure; I10 Essential (primary) hypertension; E78.5 Hyperlipidemia, unspecified; I95.9 Hypotension, unspecified; R11.2 Nausea with vomiting, unspecified; Z79.82 Long term (current) use of aspirin
CPT/HCPCS: 36415; 80048; 80053; 83735; 83874; 84484; 85025; 85027; 85347; 85610; 85730; 93005; 93041; 93306; 93458